=== PATIENT | female | born 1995 | race African-American/Black ===

== ENCOUNTER 2019-11-05 13:03 | Emergency (ER) | payer OTHER ==
--- NOTE | 2019-11-05 14:26 | EDPHYS ---
Physician Documentation [facility] Name: Tennille Beavers Age: 24 yrs Sex: Female : 1995 Arrival Date: 11/05/2019 Time: 13:08 Bed 13 Private MD: ED Physician Aston Baltazar HPI: 11/04 14:00 This 24 yrs old Black Female presents to ER via Ambulatory with complaints of fever, rn Body aches. 14:00 The patient reports fever, not measured (subjective). Onset: The symptoms/episode rn began/occurred 3 day(s) ago. Modifying factors: there are no obvious modifying factors. Severity of symptoms: At their worst the symptoms were mild in the emergency department the symptoms are unchanged. The patient has not experienced similar symptoms in the past. Reports fever, chills, muscle aches, fatigue, congestion and mild cough. No sob/chest pain/abd pain. . 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 - Social history:: Smoking status: Patient denies any tobacco usage or history of. - Family history:: not pertinent. - Hospitalizations: : No recent hospitalization is reported. ROS: 14:00 Constitutional: Negative weight loss, Eyes: Negative for injury, pain, redness, and design engineering intern, Neck: Negative for injury, pain, and swelling, Cardiovascular: Negative for chest pain, palpitations, and edema, Respiratory: Negative for shortness of breath, wheezing, and pleuritic chest pain, Abdomen/GI: Negative for abdominal pain, nausea, vomiting, diarrhea, and constipation, MS/Extremity: Negative for injury and deformity, Skin: Negative for injury, rash, and discoloration, Neuro: Negative for weakness, numbness, tingling, and seizure. Exam: 14:00 Constitutional: This is a well developed, well nourished patient who is awake, alert, rn and in no acute distress. Using her phone. Head/Face: Normocephalic, atraumatic. Eyes: Pupils equal round and reactive to light, extra-ocular motions intact. Periorbital areas with no swelling, redness, or edema. Neck: Trachea midline, no thyromegaly or masses palpated, and no cervical lymphadenopathy. Supple, full range of motion without nuchal rigidity, or vertebral point tenderness. No Meningismus. Cardiovascular: Regular rate and rhythm. No pulse deficits. Respiratory: Speaking full sentences. No increased work of breathing, no retractions or nasal flaring. Skin: Warm, dry MS/ Extremity: Pulses equal, no cyanosis. Neuro: Awake and alert, GCS 15, oriented to person, place, time, and situation. Cranial nerves II-XII grossly intact. Motor strength 5/5 in all extremities. Sensory grossly intact. Vital Signs: 13:23 BP 117 / 71; Pulse 80; Resp 16; Temp 98.7; Pulse Ox 100% on R/A; Weight 88.45 kg; iw Height 5 ft. 3 in. (160.02 cm); Pain 5/10; 13:23 Body Mass Index 34.54 (88.45 kg, 160.02 cm) iw MDM: 13:32 Patient medically screened. rn 14:24 Differential diagnosis: viral Infection, URI. Data reviewed: vital signs, nurses notes, global marketing intern test result(s), and as a result, I will discharge patient. Counseling: I had a detailed discussion with the patient and/or guardian regarding: the historical points, exam findings, and any diagnostic results supporting the discharge/admit diagnosis, lab results, the need for outpatient follow up, to return to the emergency department if symptoms worsen or persist or if there are any questions or concerns that arise at home. Special discussion: I discussed with the patient/guardian in detail that at this point there is no indication for admission to the hospital. It is understood, however, that if the symptoms persist or worsen the patient needs to return immediately for re-evaluation. 11/04 13:34 Order name: Flu; Complete Time: 14:24 rn 11/04 13:34 Order name: Strep; Complete Time: 14:24 rn 11/04 13:43 Order name: COVID-19 rn 11/04 14:06 Order name: Throat Culture EDMS Administered Medications: No medications were administered Disposition: 11/05/19 14:25 Discharged to Home. Impression: Fever, unspecified, Acute upper respiratory infection, unspecified. - Condition is Stable. - Discharge Instructions: Fever, Adult, Upper Respiratory Infection, Adult, Viral Respiratory Infection. - Medication Reconciliation Form, Thank You Letter, Antibiotic Education, Prescription Opioid Use, Work release form form. - Follow up: Private Physician; When: As needed; Reason: Recheck today's complaints, Re-evaluation by your physician. - Problem is new. - Symptoms have improved. Signatures: Dispatcher [employer] EDBrea Adamson RN RN iw Nieto, Roman, MD MD rn Harris, Amy, RN RN Corrections: (The following items were deleted from the chart) 15:04 14:25 11/05/2019 14:25 Discharged to Home. Impression: Fever, unspecified; Acute upper ah respiratory infection, unspecified. Condition is Stable. Forms are Medication Reconciliation Form, Thank You Letter, Antibiotic Education, Prescription Opioid Use. Follow up: Private Physician; When: As needed; Reason: Recheck today's complaints, Re-evaluation by your physician. Problem is new. Symptoms have improved. rn
--- NOTE | 2019-11-05 14:26 | ER ---
Nurse's Notes [facility] Name: Tennille Beavers Age: 24 yrs Sex: Female : 1995 Arrival Date: 11/05/2019 Time: 13:08 Bed 13 Private MD: Diagnosis: Fever, unspecified;Acute upper respiratory infection, unspecified Presentation: 11/04 13:23 Chief complaint: Patient states: body aches, back pain, headache since Tuesday, lost iw sense of taste yesterday lost sense of smell today , temp was 99.8, slight cough , denies SOB. Coronavirus screen: Proceed with normal triage. Patient reports a cough. Patient denies shortness of breath or difficulty breathing. Patient denies measured and/or subjective temperature greater than 100.4F prior to today's visit. Patient denies travel on a cruise ship or to a country the [facility] currently lists as an affected area. Patient denies contact with known and/or suspected case of COVID-19. Ebola Screen: Patient negative for fever greater than or equal to 101.5 degrees Fahrenheit, and additional compatible Ebola Virus Disease symptoms Patient denies exposure to infectious person. Patient denies travel to an Ebola-affected area in the 21 days before illness onset. No symptoms or risks identified at this time. Initial Sepsis Screen: Does the patient meet any 2 criteria? No. Patient's initial sepsis screen is negative. Does the patient have a suspected source of infection? No. Patient's initial sepsis screen is negative. Risk Assessment: Do you want to hurt yourself or someone else? Patient reports no desire to harm self or others. Onset of symptoms was November 03, 2019. 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 - Social history:: Smoking status: Patient denies any tobacco usage or history of. - Family history:: not pertinent. - Hospitalizations: : No recent hospitalization is reported. Screenin:33 Abuse screen: Denies threats or abuse. Nutritional screening: No deficits noted. Tuberculosis screening: No symptoms or risk factors identified. Fall Risk None identified. Assessment: 13:48 General: Appears in no apparent distress. Behavior is calm, cooperative, appropriate ah for age, Reports feeling ill for 1-2 days. Pain: Complains of pain in generalized body aches. Neuro: Level of Consciousness is awake, alert, Oriented to person, place, time, situation. Cardiovascular: Capillary refill < 3 seconds Patient's skin is warm and dry. Respiratory: Airway is patent Respiratory effort is even, unlabored, Denies shortness of breath. Respiratory: Reports cough that is productive. : Denies burning with urination. EENT: Denies nasal congestion, nasal discharge, difficulty swallowing. Derm: Skin is intact, is healthy with good turgor, Skin is dry. 14:45 Reassessment: Discharged Pt home. Instructed to quarantine until she receives covid swabs. Vital Signs: 13:23 BP 117 / 71; Pulse 80; Resp 16; Temp 98.7; Pulse Ox 100% on R/A; Weight 88.45 kg; iw Height 5 ft. 3 in. (160.02 cm); Pain 5/10; 13:23 Body Mass Index 34.54 (88.45 kg, 160.02 cm) ED Course: 13:08 Patient arrived in ED. mr 13:25 Triage completed. iw 13:26 Arm band placed on. iw 13:32 Aston Baltazar MD is Attending Physician. rn 13:33 Lisa Garibay, RN is Primary Nurse. 13:34 Patient has correct armband on for positive identification. Bed in low position. Call light in reach. Side rails up X 1. 14:45 No provider procedures requiring assistance completed. Patient did not have IV access during this emergency room visit. 15:59 Health Dept notified/ PUI # [id number]/ Abby from lab notified. eb Administered Medications: No medications were administered Outcome: 14:25 Discharge ordered by . rn 14:45 Discharged to home ambulatory. 14:45 Condition: good 14:45 Discharge instructions given to patient, Instructed on discharge instructions, follow up and referral plans. Demonstrated understanding of instructions, follow-up care. 15:04 Patient left the ED. Addendum: 11/07/2019 19:24 Addendum: Other Patient given COVID results by Dr. Bell. l p1 Signatures: Mariella Burkett mr Brea Jenkins, RN RN iw Aston Baltazar MD MD rn Pena, Laura, RN RN lp1 Melisa Pollack Amy, RN RN Corrections: (The following items were deleted from the chart) 19:29 19:28 Addendum: Other Patient given COVID results by Dr. Bell lp1 lp1
[2019-11-05 15:14] VITALS: BP 117/71; TEMP 98.7; O2SAT 100
--- OUTSIDE RECORDS SUMMARY | 2019-11-05 17:09 | XMS REPORT | Clinical Summary ---
:1995 Author Organization [facility] Address [address] [place] [address] Care Team Providers Name Role Phone Jeni Primary Care Provider Unavailable Allergies No Known Allergies Medications Medication Sig Dispensed Refills Start Date End Date Status norethindrone 0 09/27/2017 Activ e (MICRONOR) 0.35 mg tablet HYDROcodone-acetamino Take 1 tablet by 45 tablet 0 11/07/2018 11/14/2018 phen (NORCO) 7.5-325 mouth every 4 mg per tablet (four) hours as needed for moderate pain for up to 45 doses. Max Daily Amount: 6 tablets traMADol (ULTRAM) 50 Take 1 tablet 45 tablet 0 11/14/201801/2019 mg tablet (50 mg total) by mouth every 6 (six) hours as needed for moderate pain for up to 14 days. HYDROcodone-acetamino Take 1 tablet by 40 tablet 0 11/21/2018 12/21/2018 phen (NORCO) 5-325 mg mouth every 8 per tablet (eight) hours as needed for moderate pain for up to 30 days. Max Daily Amount: 3 tablets Active Problems Problem Noted Date Stress fracture of left tibia 10/02/2018 Overview: Added automatically from request for ara domenico [id number] Acute right ankle pain 11/04/2017 Sprain of medial collateral ligament of right knee Stress fracture of right tibia 10/10/2017 Pain in left weiner 10/10/2017 Encounters Date Type Specialty Care Team Description 01/23/2019 Telephone Orthopedic Surgery Arturo Batista MD 12/25/2018 Office Visit Orthopedic Surgery Arturo Batista f Milind MD right tibia wit h routine healing , subsequent enco unter (Primary Dx) 11/21/2018 Office Visit Orthopedic Surgery Dimas, Samuel fr acture of Yohana Buenrostro, right tibia wi th PA routine healing , subsequent enco unter (Primary Dx) 11/21/2018 Telephone Orthopedic Surgery Arturo Batista MD 11/14/2018 Refill Orthopedic Surgery Alexus Mayo MA 11/08/2018 Telephone Anesthesiology Isela Olmos, XENA 11/07/2018 Anesthesia Event General Surgery Regis Rose MD [place], Laverne Denecia, NP 11/07/2018 Surgery General Surgery Arturo Batista INTRAMEDULL MARCO ANTONIO NAILING MD Sid LEFT TIBIA STRE SS FRACTURE 11/07/2018 Hospital Encounter General Surgery Arturo Batista Stres s fracture of MD Sid left tibia, ini tial encounter 11/06/2018 Orders Only Orthopedic Surgery Arturo Batista Stress f racture of MD Sid left tibia, ini tial encounter (Prim marco antonio Dx) after 11/04/2018 Family History Medical History Relation Name Comments No Known Problems Father Heart disease Mother Relation Name Status Comments Father Mother Social History Tobacco Use Types Packs/Day Years Used Date Never Smoker Smokeless Tobacco: Never Used Tobacco Cessation: Counseling Given: Yes Alcohol Use Drinks/Week oz/Week Comments No Sex Assigned at Date Recorded Not on file Job Start Date Occupation Industry Not on file Not on file Not on file Travel History Travel Start Travel End No recent travel history available. Last Filed Vital Signs Vital Sign Reading Time Taken Comments Blood Pressure 115/67 11/07/2018 10:35 AM CDT Pulse 68 11/07/2018 10:35 AM CDT Temperature 36.1 C (97 F) 11/07/2018 10:35 AM CDT Respiratory Rate 14 11/07/2018 10:35 AM CDT Oxygen Saturation 100% 11/07/2018 10:35 AM CDT Inhaled Oxygen Concentration - - Weight 83 kg (183 lb) 12/25/2018 9:49 AM CDT Height 160 cm (5' 3") 12/25/2018 9:49 AM CDT Body Mass Index 32.42 12/25/2018 9:49 AM CDT Plan of Treatment Health Maintenance Due Date Last Done Comments CHLAMYDIA SCREENING 2012 CERVICAL CANCER SCREENING 02/21/2017 INFLUENZA VACCINE 12/22/2019 Implants Implanted Type Area Sales Operations Manager Device Shelf Model / Identifier Expiration Serial / Date Lot 8mm Ti Jorge Alberto Tibial Nail-Ex W/Prox Bend 315mm-Sterile - [id number] [id number] IMPLANT Right: SYNTHES TRAUMA 06/22/2025 04 034 [id number] / Implanted: 10/28/2017 at [facility] (Quantity not on file) DE VICES Tibia / [id number] 4.0mm Ti Locking Screw W/T25 Stardrive 32mm F/Im Nails -Ster - [id number] IMPLANT Right: SYNTHES TRAUMA 08/20/2025 04 005 [id number] / Implanted: 10/28/2017 at [facility] (Quantity not on file) DE VICES Tibia / [id number] 4.0mm Ti Locking Screw W/T25 Stardrive 30mm F/Im Nails -Ster - [id number] IMPLANT Right: SYNTHES TRAUMA 06/22/2026 04 005 420S / Implanted: 10/28/2017 at [facility] (Quantity not on file) DE VICES Tibia / [id number] 8mm Ti Jorge Alberto Tibial Nail-Ex W/Prox Bend 315mm-Sterile - [id number] IPM IMPLANT Left: SYNTHES TRAUMA 03/22/2026 04 034 243S / Implanted: 11/07/2018 at [facility] (Quantity not on file) DE VICES Tibia / [id number] 4.0mm Ti Locking Screw W/T25 Stardrive 34mm F/Im Nails -Ster - [id number] IMPLANT Left: SYNTHES TRAUMA 06/22/2026 04 005 [id number] / Implanted: 11/07/2018 at [facility] (Quantity not on file) DE VICES Tibia / [id number] 4.0mm Ti Locking Screw W/T25 Stardrive 32mm F/Im Nails -Ster - [id number] IMPLANT Left: SYNTHES TRAUMA 05/22/2027 04 005 [id number] / Implanted: 11/07/2018 at [facility] (Quantity not on file) DE VICES Tibia / [id number] Procedures Procedure Name Priority Date/Time Associated Comments Diagnosis XR TIBIA FIBULA 2 VW Routine 12/25/2018 9:58 AM Stress fractu re of Results for this LEFT CDT right tibia with procedure a re in routine healing, the results subsequent section. encounter XR TIBIA FIBULA 2 VW Routine 11/21/2018 11:13 AM Stress fractu re of Results for this LEFT CDT right tibia with procedure a re in routine healing, the results subsequent section. encounter [place] < 1 HOUR Routine 11/07/2018 9:59 AM Result s for this CDT procedure are i n the results section. ANESTHESIA Routine 11/07/2018 8:19 AM INTUBATION CDT Procedure Note - Rubin Osborn CRNA - 11/07/2018 8:19 AM CDT Airway Date/Time: 11/07/2018 8:11 AM Performed by: Aide Osborn CRNA Authorized by: Greta Rose MD Location: OR Difficult Airway: No Performed by: resident/STAFF CYTOTECHNOLOGIST/AA Preoxygenated with 100% O2: Yes Mask Ventilation: Not attem pted Final Airway Type: Supraglo ttic airway Final LMA: Unique LMA Size: 4 Number of Attempts at Approa ch: 1 Dentition unchanged. INSERTION, INTRAMEDULLARY NAIL, 11/07/2018 7:39 AM CDT Stress fracture of left TIBIA tibia, initial encounter Special Needs OP, GENERAL WITH ADDUCTOR CA NAL & SCIATIC BLOCK, ARTHREX, LARGE C-ARM, SUPINE HCG QUALITATIVE, URINE STAT 11/07/2018 7:15 AM CDT Results for this SCREEN procedure are i n the results section . AR AN PERIPHERAL BLOCK Routine 11/07/2018 7:06 AM CDT PROCEDURE FOR PAIN Procedure Note - Leny Rose MD - 11/07/2018 7:06 AM CDT Peripheral Block Performed by: Regis Rose MD Authorized by: Arturo Batista MD Patient Location: [facility] Start Time: 11/07/2018 7:30 AM End Time: 11/07/2018 7:35 AM Reason for Block: at surgeon 's request, post-op pain management, procedure for pain Staff: Anesthesiologist: Regis Hunt MD Performed by: Anesthesiol russ Preprocedure: patient identi fied, IV checked, site and side verified, risks and benefits discussed, procedure verified, surgical consent complete, patient position confirmed, monitors and equipment checked, pre-op evaluation complete a nd site marked Time Out Performed: 11/08/19 7:24 AM Peripheral Nerve Block: Patient Position: Supine Prep: ChloraPrep Monitoring: Blood pressur e monitoring, continuous pulse oximetry, CO2 and heart rate Block Type: Sciatic and pop liteal Laterality: Left Injection Technique: Cathet er insertion Procedures: ultrasound guide d and nerve stimulator Ultrasound documentation: P rinted/placed in chart and still images obtained Local Infiltration (See MAR for details): Lidocaine Needle: Needle type: Stimucath. Needle gauge: 18GTW. Needle Length: 8 cm Catheter size: 20 G. Assessment: Injection Assessment: Vis ualized needle/local anesthetic surrounding nerve, visualized pertinent vascular structures and nerves, needle tip visualized at all times during injection of medication, intermittent aspiration during local anes thetic administration and no symptoms of intraneural/intravenous injection Paresthesia Pain: None Heart Rate Change: No Slow Fractionated Injectio n: Yes Block outcome: No apparen t complications, patient comfortable and patient tolerated procedure well AR AN PERIPHERAL BLOCK POST-OP PAIN Routine 11/07/2018 7:06 A M CDT Procedure Note - Leny Rose MD - 11/07/2018 7:06 AM CDT Peripheral Block Performed by: Regis Rose MD Authorized by: Arturo Batista MD Patient Location: [facility] Start Time: 11/07/2018 7:30 AM End Time: 11/07/2018 7:35 AM Reason for Block: at surgeon 's request, post-op pain management, procedure for pain Staff: Anesthesiologist: Regis Hunt MD Performed by: Anesthesiol russ Preprocedure: patient identi fied, IV checked, site and side verified, risks and benefits discussed, procedure verified, surgical consent complete, patient position confirmed, monitors and equipment checked, pre-op evaluation complete a nd site marked Time Out Performed: 11/08/19 7:24 AM Peripheral Nerve Block: Patient Position: Supine Prep: ChloraPrep Monitoring: Blood pressur e monitoring, continuous pulse oximetry, CO2 and heart rate Block Type: Sciatic and pop liteal Laterality: Left Injection Technique: Cathet er insertion Procedures: ultrasound guide d and nerve stimulator Ultrasound documentation: P rinted/placed in chart and still images obtained Local Infiltration (See MAR for details): Lidocaine Needle: Needle type: Stimucath. Needle gauge: 18GTW. Needle Length: 8 cm Catheter size: 20 G. Assessment: Injection Assessment: Vis ualized needle/local anesthetic surrounding nerve, visualized pertinent vascular structures and nerves, needle tip visualized at all times during injection of medication, intermittent aspiration during local anes thetic administration and no symptoms of intraneural/intravenous injection Paresthesia Pain: None Heart Rate Change: No Slow Fractionated Injectio n: Yes Block outcome: No apparen t complications, patient comfortable and patient tolerated procedure well AR AN PERIPHERAL BLOCK POST-OP PAIN Routine 11/07/2018 7:04 A M CDT Procedure Note - Leny Rose MD - 11/07/2018 7:04 AM CDT Peripheral Block Performed by: Regis Rose MD Authorized by: Arturo Batista MD Patient Location: PACU Start Time: 11/07/2018 7:25 AM End Time: 11/07/2018 7:29 AM Reason for Block: at surgeon 's request, post-op pain management Staff: Anesthesiologist: Regis Hunt MD Performed by: Anesthesiol ogist Preprocedure: patient identi fied, IV checked, site and side verified, risks and benefits discussed, procedure verified, surgical consent complete, patient position confirmed, monitors and equipment checked, pre-op evaluation complete a nd site marked Time Out Performed: 11/08/19 7:24 AM Peripheral Nerve Block: Patient Position: Supine Prep: ChloraPrep Monitoring: Blood pressur e monitoring, continuous pulse oximetry, CO2 and heart rate Block Type: Adductor canal Laterality: Left Injection Technique: Single injection Procedures: ultrasound guide d Ultrasound documentation: P rinted/placed in chart and still images obtained Local Infiltration (See MAR for details): Lidocaine Needle: Needle type: Arrow Julian thompson. Needle Gauge: 21 G Needle length: 90mm. Assessment: Injection Assessment: Vis ualized needle/local anesthetic surrounding nerve, visualized pertinent vascular structures and nerves, needle tip visualized at all times during injection of medication, intermittent aspiration during local anes thetic administration and no symptoms of intraneural/intravenous injection Paresthesia Pain: None Heart Rate Change: No Slow Fractionated Injectio n: Yes Block outcome: No apparen t complications, patient comfortable and patient tolerated procedure well after 11/04/2018 Results XR Tibia Fibula 2 Vw Left (12/25/2018 9:58 AM CDT)Only the most recent of2 resultswithin the time period is included. Specimen Narrative Performed At This result has an attachment that is no t available. 2V of the left tibia were obtained today in clinic and reviewed by me TIMMY which demonstrate that she is status post intramedulla ry nailing of a tibial stress fracture. The you remains well placed and well fixed with no evidence of fracture, dislocation or significant ar thritis. Performing Organization Address [facility] Phone Number [facility] [address] [place] [address] OR [place] < 1 Hour (11/07/2018 9:59 AM CDT) Specimen Narrative Performed At EXAMINATION: [place] 1 HOUR [facility] CLINICAL HISTORY: Fluoroscopic guidance. IMPRESSION: Fluoroscopy was provided. No radiologist present. Pl ease see procedure report for discussion of procedure, find ings. [id number] Procedure Note Interface, Radiology Results Incoming - 11/07/2018 10:13 AM CDT EXAMINATION: OR [place] 1 HOUR CLINICAL HISTORY: Fluoroscopic guidance. IMPRESSION: Fluoroscopy was provided. No radiologist present. Please see procedure report for discussion of procedure, findings. [id number] Performing Organization Address [facility] Phone Number [facility] [address] [place] [address] hCG qualitative, urine screen (11/07/2018 7:15 AM CDT) hCG qualitative, Negative Negative [facility] urine Comment: [facility] Sensitivity of HCG test: 25 mIU/ml [facility] POC testing for urine performed by Nataly Adams on 11/07/18 at 07:15 in [facility], [address] [place] [address]. Test result(s) entere d into LIS by [facility] [address] [facility] [address] [place] [address]. Specimen Urine Performing Organization Address [facility] Phone Number [facility] DEPARTMENT OF PATHOLOGY [address] [facility]. [address] [place], [place] [address] AND GENOMIC MEDICINE [facility] [address] [facility] [address] [place] [address] HOSPITAL after 11/04/2018 Advance Directives For more information, please contact: [phone] Type Date Recorded Patient Bladder Cleaner Explanati on Advance Directives, Living Will 10/25/2018 12:01 PM and Medical Power of Cane Feeder
== END 2019-11-05 15:04 | disposition home or self-care (01) ==
LOC: ER 13:03
DX: U07.1 COVID-19 (principal); J06.9 Acute upper respiratory infection, unspecified
CPT/HCPCS: 87070; 87081; 87804 ×2; 99281; U0001